=== PATIENT | male | born 1970 | race Caucasian/White ===

== ENCOUNTER 2017-11-10 05:25 | Day surgery (SDC) | payer OTHER ==
[~2017-11-10] VITALS: Ht 175.3 cm; Wt 133.8 kg
[~2017-11-10 05:25] MED LIST: AMLO5TAB4 PO; CIPR-211 PO; IBUP-1969 PO; LISI40TA4 PO
[2017-11-10] MEDS ORDERED: CEFAZOLIN SOD 2 GM in D5W 50 ML IV ONE (07:00)
[2017-11-10] MEDS ORDERED: CEFAZOLIN SOD 1 GM/ ISO 50 ML PREMIX IV ONE (07:00)
[2017-11-10] MEDS ORDERED: SEVOFLURANE 15 MIN GAS INH ONE ×2 (07:10)
[2017-11-10] MEDS ORDERED: EPINEPHrine 1 MG/ML AMP IV ONE (07:10)
[2017-11-10] MEDS ORDERED: NS 1000 ML IV.SOLN IV ONE (07:10)
[2017-11-10] MEDS ORDERED: SUCCINYLCHOLINE CHLORIDE 20 MG/ML(QUELICIN) IVP ONE (07:10)
[2017-11-10] MEDS ORDERED: fentaNYL CITRATE 250 MCG/5 ML AMP IV ONE (07:10)
[2017-11-10] MEDS ORDERED: KETOROLAC TROMETHAMINE 30 MG VIAL IVP ONE (07:10)
[2017-11-10] MEDS ORDERED: PROPOFOL 200MG/ 20ML VIAL (DIPRIVAN) IV ONE (07:10)
[2017-11-10] MEDS ORDERED: ROCURONIUM BROMIDE 10 MG/ML (ZEMURON) IV ONE (07:10)
[2017-11-10] MEDS ORDERED: DEXAMETHASONE SOD PHOSPHATE 4 MG/ML VIAL IVP ONE (07:10)
[2017-11-10] MEDS ORDERED: BUPIVACAINE /PF 0.25% 30 ML VIAL INJ ONE (07:10)
[2017-11-10] MEDS ORDERED: SUGAMMADEX SODIUM 200 MG/2 ML VIAL IV ONE (07:10)
[2017-11-10] MEDS ORDERED: LR 1,000 ML IV.SOLN IV ONE (07:10)
[2017-11-10] MEDS ORDERED: MIDAZOLAM HCL 5 MG/5 ML VIAL IVP ONE (07:10)
[2017-11-10] MEDS ORDERED: ONDANSETRON HCL 4 MG/2 ML VIAL IVP ONE (07:10)
[2017-11-10] MEDS ORDERED: CEFAZOLIN 2 GM IVPB PREMIX 50 ML IV ONE (07:32)
[2017-11-10] MEDS ORDERED: IOHEXOL 0 ML IV ONE (07:39)
[2017-11-10] MEDS ORDERED: LR 1,000 ML IV SCH (08:41)
[2017-11-10] MEDS ORDERED: MEPERIDINE HCL/PF 25 MG/ML DISP.SYRIN IVP PRN (08:45)
[2017-11-10] MEDS ORDERED: HYDROmorphone 1 MG INJ. 1 MG/ML AMPUL IVP PRN ×2 (08:45→09:00)
[2017-11-10] MEDS ORDERED: HYDROmorphone 2 MG/ML VIAL IVP PRN ×2 (08:45)
[2017-11-10] MEDS ORDERED: D5/0.45 NS 1,000 ML IV SCH (08:51)
[2017-11-10] MEDS ORDERED: HYDROcodone/ACETAMIN 5-325 MG TAB (NORCO/ VICODIN) PO PRN ×2 (09:00)
[2017-11-10] MEDS ORDERED: HYDROmorphone 1 MG INJ. 1 MG/ML AMPUL ONE (09:55)
[2017-11-10] MEDS ORDERED: HYDROcodone/ACETAMIN 5-325 MG TAB (NORCO/ VICODIN) ONE (12:23)
[2017-11-10 15:28] VITALS: BP_SYST 118
== END 2017-11-10 15:23 | disposition home or self-care (01) ==
LOC: SDS 05:25
PROVIDERS: ATTEND Colon & Rectal Surgery
DX: K80.10 Calculus of gallbladder with chronic cholecystitis without obstruction (principal); M19.90 Unspecified osteoarthritis, unspecified site; I10 Essential (primary) hypertension; G47.33 Obstructive sleep apnea (adult) (pediatric); Z98.890 Other specified postprocedural states; Z82.49 Family history of ischemic heart disease and other diseases of the circulatory system; Z80.7 Family history of other malignant neoplasms of lymphoid, hematopoietic and related tissues; Z80.1 Family history of malignant neoplasm of trachea, bronchus and lung; Z80.0 Family history of malignant neoplasm of digestive organs; Z68.41 Body mass index [BMI] 40.0-44.9, adult; Z79.899 Other long term (current) drug therapy
CPT/HCPCS: 47562; 88304; C1727; C9399; J0171; J0330; J0690 ×2; J1100; J1170; J1885; J2250; J2405; J2704; J3010; J3490; J7030; J7120; Q9967

== ENCOUNTER 2022-01-21 23:44 | Inpatient (IN) | payer OTHER ==
[~2022-01-21] VITALS: Ht 175.3 cm; Wt 118.4 kg
[~2022-01-21 23:44] MED LIST changes: -CIPR-211 PO; +CIPR500T5 PO; +LISI40TA13 PO; -LISI40TA4 PO
[2022-01-21 23:55] VITALS: BP_SYST 117
[2022-01-22] MEDS ORDERED: PIPERACILLIN/TAZO 3.375 GM in D5W 50 ML IV ONE (00:30)
[2022-01-22] MEDS ORDERED: NACL 0.9% 1,000 ML IV ONE (00:30)
[2022-01-22] MEDS ORDERED: ACETAMINOPHEN 500 MG TABLET PO ONE (00:30)
[2022-01-22] MEDS ORDERED: PIPERACILLIN/TAZOBACTAM 3.375 GM/VIAL (ZOSYN) IV ONE (00:35)
[2022-01-22 00:56] LABS: BASOPHILS % (AUTO) 0.3 % (0.0-2.0); EOSINOPHILS # (AUTO) 0.2 K/uL (0.0-0.4); EOSINOPHILS % (AUTO) 1.6 % (0.0-4.0); HEMOGLOBIN 13.6 g/dL (14.0-18.0); LYMPHOCYTES # (AUTO) 0.7 K/uL (1.0-5.5); LYMPHOCYTES % (AUTO) 6.3 % (20.5-51.5); MEAN CORPUSCULAR HEMOGLOBIN 31 pg (27-31); MEAN CORPUSCULAR HGB CONC 35 % (32-36); MEAN CORPUSCULAR VOLUME 88 fL (79.0-98.0); MONOCYTES # (AUTO) 0.5 K/uL (0.0-1.0); MONOCYTES % (AUTO) 4.9 % (1.7-9.3); NEUTROPHILS # (AUTO) 9.1 K/uL (1.8-7.7); NEUTROPHILS % (AUTO) 86.9 % (40.0-70.0); PLATELET COUNT (AUTO) 168 K/uL (130-430); RED BLOOD CELL COUNT(AUTO) 4.45 MIL/uL (4.2-6.2); RED CELL DISTRIBUTION WIDTH 12.9 % (9.0-15.0); WHITE BLOOD COUNT (AUTO) 10.5 K/uL (4.8-10.8)
[2022-01-22 01:10] LABS: ANION GAP 10 (5-15); CALCIUM 9.6 mg/dL (8.4-11.0); CHLORIDE 102 mmol/L (98-107); CREATININE 1.12 mg/dL (0.55-1.30); GLUCOSE 135 mg/dL (70-99); UREA NITROGEN, BLOOD 17 mg/dL (8-21)
[2022-01-22 01:18] LABS: ALANINE AMINOTRANSFERASE 59 U/L (12-78); ASPARTATE AMINOTRANSFERASE 27 U/L (10-37); TOTAL BILIRUBIN 0.5 mg/dL (0.0-1.0)
[2022-01-22 01:22] LABS: GFR AFRICAN AMERICAN 89 mL/min (>90)
[2022-01-22] MEDS ORDERED: ACETAMINOPHEN 325 MG TABLET PO PRN (03:30)
[2022-01-22 04:00] LABS: BILIRUBIN,URINE NEGATIVE (NEGATIVE); CLARITY/URINE CLEAR (CLEAR); COLOR,URINE YELLOW (YELLOW); GLUCOSE,URINE NEGATIVE (NEGATIVE); KETONES,URINE NEGATIVE (NEGATIVE); LEUKOCYTE ESTERASE ,URINE NEGATIVE (NEGATIVE); NITRITE, URINE NEGATIVE (NEGATIVE); PROTEIN URINE NEGATIVE (NEGATIVE); UROBILINOGEN,URINE 0.2 (0.2-1.0)
[2022-01-22] MEDS ORDERED: VANCOMYCIN HCL 1,000 MG in NS 250 ML IV ONE (04:00)
[2022-01-22 04:06] LABS: BLOOD, URINE TRACE (NEGATIVE)
[2022-01-22] MEDS ORDERED: VANCOMYCIN HCL 1000 MG/VIAL IV ONE (04:08)
[2022-01-22 04:15] LABS: BACTERIA,URINE FEW /HPF (None Seen); MUCUS,URINE None Seen /LPF (None Seen)
[2022-01-22 05:56] VITALS: BP_SYST 135
[2022-01-22 06:00] VITALS: BP_SYST 126
[2022-01-22 11:42] VITALS: BP_SYST 122
[2022-01-22] MEDS: AMPICILLIN SODIUM/SULBACTAM NA 3 GM in NS 100 ML IV SCH ×2 (12:21→19:00)
[2022-01-22] MEDS: VANCOMYCIN HCL 1,000 MG in NS 250 ML IV SCH ×2 (12:24→20:29)
[2022-01-22 16:20] VITALS: BP_SYST 136
[2022-01-22 20:31] VITALS: BP_SYST 137
[2022-01-23] MEDS: AMPICILLIN SODIUM/SULBACTAM NA 3 GM in NS 100 ML IV SCH ×4 (00:49→17:52)
[2022-01-23] MEDS: VANCOMYCIN HCL 1,000 MG in NS 250 ML IV SCH ×3 (05:26→21:09)
[2022-01-23 08:42] VITALS: BP_SYST 138
[2022-01-23 12:00] VITALS: BP_SYST 128
[2022-01-23 16:00] VITALS: BP_SYST 111
[2022-01-23 19:00] VITALS: BP_SYST 108
[2022-01-23 20:00] VITALS: BP_SYST 108
[2022-01-24] VITALS: BP_SYST 112
[2022-01-24] MEDS: AMPICILLIN SODIUM/SULBACTAM NA 3 GM in NS 100 ML IV SCH ×3 (00:02→11:14)
[2022-01-24] MEDS: VANCOMYCIN HCL 1,000 MG in NS 250 ML IV SCH ×2 (03:38→11:15)
[2022-01-24 07:14] LABS: BASOPHILS % (AUTO) 0.6 % (0.0-2.0); EOSINOPHILS # (AUTO) 0.4 K/uL (0.0-0.4); EOSINOPHILS % (AUTO) 7.6 % (0.0-4.0); HEMATOCRIT 38.9 % (36-54); HEMOGLOBIN 13.4 g/dL (14.0-18.0); LYMPHOCYTES # (AUTO) 1.3 K/uL (1.0-5.5); LYMPHOCYTES % (AUTO) 22.8 % (20.5-51.5); MEAN CORPUSCULAR HEMOGLOBIN 30 pg (27-31); MEAN CORPUSCULAR HGB CONC 34 % (32-36); MEAN CORPUSCULAR VOLUME 88 fL (79.0-98.0); MONOCYTES # (AUTO) 0.8 K/uL (0.0-1.0); NEUTROPHILS # (AUTO) 3.1 K/uL (1.8-7.7); PLATELET COUNT (AUTO) 170 K/uL (130-430); RED BLOOD CELL COUNT(AUTO) 4.42 MIL/uL (4.2-6.2); RED CELL DISTRIBUTION WIDTH 12.8 % (9.0-15.0); WHITE BLOOD COUNT (AUTO) 5.7 K/uL (4.8-10.8)
[2022-01-24 07:26] LABS: CALCIUM 8.9 mg/dL (8.4-11.0); CREATININE 0.85 mg/dL (0.55-1.30)
[2022-01-24] MEDS ORDERED: DOXY100C PO (11:26)
[2022-01-24 12:49] VITALS: BP_SYST 110
[2022-01-24 13:35] VITALS: BP_SYST 111
[2022-01-24] MEDS ORDERED: VANCOMYCIN HCL 1,500 MG in NS 250 ML IV SCH (20:00)
== END 2022-01-24 14:30 | disposition home health service (06) | DRG 603 ==
LOC: SED 23:44 → STU 01-22 03:19
PROVIDERS: ADMIT Internal Medicine; ATTEND Internal Medicine
DX: L03.116 Cellulitis of left lower limb (principal); N39.0 Urinary tract infection, site not specified; E83.59 Other disorders of calcium metabolism; N29 Other disorders of kidney and ureter in diseases classified elsewhere; E66.9 Obesity, unspecified; I89.0 Lymphedema, not elsewhere classified; Z20.822 Contact with and (suspected) exposure to COVID-19; Z91.030 Bee allergy status; Z79.899 Other long term (current) drug therapy; Z68.38 Body mass index [BMI] 38.0-38.9, adult
CPT/HCPCS: 36415; 71045; 76770; 80048; 80053; 80202; 81000; 83605; 84484; 85025; 87040; 87086; 93005; 96365; 96367; 99285; G0378; J0295; J2543; J3370; J7030; J7050

== ENCOUNTER 2023-05-26 14:19 | Observation (INO) | payer OTHER ==
[~2023-05-26] VITALS: Ht 175.3 cm; Wt 126.6 kg
[~2023-05-26 14:19] MED LIST changes: -CIPR500T5 PO; +DOXY100C PO; -IBUP-1969 PO
[2023-05-26 14:21] VITALS: BP_SYST 108; PULSE 103; RESP 16; TEMP 98.7; O2SAT 97
[2023-05-26 15:15] LABS: BASOPHILS % (AUTO) 0.5 % (0.0-2.0); EOSINOPHILS # (AUTO) 0.2 K/uL (0.0-0.4); EOSINOPHILS % (AUTO) 1.7 % (0.0-4.0); HEMATOCRIT 43.5 % (36-54); HEMOGLOBIN 15.2 g/dL (14.0-18.0); LYMPHOCYTES # (AUTO) 1.2 K/uL (1.0-5.5); LYMPHOCYTES % (AUTO) 13.2 % (20.5-51.5); MEAN CORPUSCULAR HEMOGLOBIN 31 pg (27-31); MEAN CORPUSCULAR HGB CONC 35 % (32-36); MEAN CORPUSCULAR VOLUME 89 fL (79.0-98.0); MONOCYTES # (AUTO) 0.6 K/uL (0.0-1.0); MONOCYTES % (AUTO) 6.7 % (1.7-9.3); NEUTROPHILS # (AUTO) 7.3 K/uL (1.8-7.7); NEUTROPHILS % (AUTO) 77.9 % (40.0-70.0); PLATELET COUNT (AUTO) 228 K/uL (130-430); RED BLOOD CELL COUNT(AUTO) 4.88 MIL/uL (4.2-6.2); RED CELL DISTRIBUTION WIDTH 12.8 % (9.0-15.0); WHITE BLOOD COUNT (AUTO) 9.4 K/uL (4.8-10.8)
[2023-05-26 15:22] LABS: ANION GAP 10 (5-15); CALCIUM 9.2 mg/dL (8.4-11.0); CARBON DIOXIDE 26 mmol/L (23-29); CHLORIDE 102 mmol/L (98-107); CREATININE 0.99 mg/dL (0.55-1.30); GFR AFRICAN AMERICAN 102 mL/min (>90); GLUCOSE 111 mg/dL (74-106); SODIUM SERUM 138 mmol/L (136-145); UREA NITROGEN, BLOOD 13 mg/dL (8-21)
[2023-05-26 15:23] LABS: GFR NON AFRICAN-AMERICAN 84 mL/min (>90); PROTHROMBIN TIME 10.8 SECS (9.5-12.5)
[2023-05-26 15:30] LABS: CREATINE KINASE, TOTAL 160 U/L (39-308)
[2023-05-26] MEDS ORDERED: IOHEXOL 350 mgI/mL, 150 ML INFUS..BTL IV ONE (15:40)
[2023-05-26] MEDS: ASPIRIN 325 MG TABLET PO ONE (17:01)
[2023-05-26 23:15] VITALS: BP_SYST 119; PULSE 79; RESP 20; TEMP 98.1; O2SAT 96
[2023-05-27] VITALS: RESP 20
[2023-05-27 04:00] VITALS: RESP 20
[2023-05-27 08:00] VITALS: BP_SYST 123; PULSE 82; RESP 18; TEMP 98.7; O2SAT 97
[2023-05-27] MEDS ORDERED: ONDANSETRON HCL 4 MG/2 ML VIAL IVP PRN (10:30)
[2023-05-27] MEDS ORDERED: LORazepam 2 MG/ML VIAL IVP PRN (10:30)
[2023-05-27] MEDS ORDERED: ACETAMINOPHEN 325 MG TABLET PO PRN ×2 (10:30)
[2023-05-27] MEDS ORDERED: NALOXONE HCL 0.4 MG/ML AMP (NARCAN) IVP PRN ×2 (10:30)
[2023-05-27] MEDS ORDERED: HYDROcodone/ACETAMIN 5-325 MG TAB (NORCO/ VICODIN) PO PRN (10:30)
[2023-05-27] MEDS ORDERED: HYDROcodone/ACETAMIN 10-325 MG TAB PO PRN (10:30)
[2023-05-27] MEDS: amLODIPine BESYLATE 5 MG TABLET PO ONE (11:43)
[2023-05-27] MEDS: lisinopriL 20 MG TABLET PO ONE (11:44)
[2023-05-27 13:22] VITALS: BP_SYST 120; PULSE 82; RESP 18; TEMP 98
[2023-05-27 13:28] VITALS: BP_SYST 120; PULSE 82; RESP 18; TEMP 98
[2023-05-27] MEDS ORDERED: NORMAL SALINE 5 ML DISP.SYRIN IVF SCH (14:00)
[2023-05-27] MEDS ORDERED: DOXYCYCLINE HYCLATE 100 MG CAPSULE PO SCH (21:00)
[2023-05-28] MEDS ORDERED: lisinopriL 20 MG TABLET PO SCH (09:00)
[2023-05-28] MEDS ORDERED: amLODIPine BESYLATE 5 MG TABLET PO SCH (09:00)
== END 2023-05-27 12:50 | disposition home or self-care (01) ==
LOC: SED 14:19 → SMU 18:18
PROVIDERS: ADMIT Specialist; ATTEND Specialist
DX: I16.0 Hypertensive urgency (principal); R07.89 Other chest pain; I73.9 Peripheral vascular disease, unspecified; I51.7 Cardiomegaly; G47.30 Sleep apnea, unspecified; I10 Essential (primary) hypertension; Z79.899 Other long term (current) drug therapy
CPT/HCPCS: 80048; 82550; 83880; 85025; 85379; 85610; 85730; 84484 ×2; 36415 ×2; 71045; 71275; 99285; 93306; Q9967; G0378 ×2; 93005

== ENCOUNTER 2023-08-26 19:11 | Emergency (ER) | payer OTHER ==
[~2023-08-26] VITALS: Ht 175.3 cm; Wt 120.7 kg
[2023-08-26 19:57] VITALS: BP_SYST 135; PULSE 91; RESP 20; TEMP 98.4; O2SAT 98
[2023-08-26] MEDS: FAMOTIDINE PF 20 MG/2 ML VIAL IVP ONE (20:29)
[2023-08-26 20:32] LABS: BASOPHILS % (AUTO) 0.5 % (0.0-2.0); EOSINOPHILS # (AUTO) 0.3 K/uL (0.0-0.4); EOSINOPHILS % (AUTO) 3.8 % (0.0-4.0); HEMATOCRIT 42.2 % (36-54); HEMOGLOBIN 14.7 g/dL (14.0-18.0); LYMPHOCYTES % (AUTO) 12.5 % (20.5-51.5); MEAN CORPUSCULAR HEMOGLOBIN 31 pg (27-31); MEAN CORPUSCULAR HGB CONC 35 % (32-36); MEAN CORPUSCULAR VOLUME 88 fL (79.0-98.0); MONOCYTES # (AUTO) 0.5 K/uL (0.0-1.0); NEUTROPHILS # (AUTO) 5.9 K/uL (1.8-7.7); NEUTROPHILS % (AUTO) 76.2 % (40.0-70.0); PLATELET COUNT (AUTO) 215 K/uL (130-430); RED BLOOD CELL COUNT(AUTO) 4.81 MIL/uL (4.2-6.2); RED CELL DISTRIBUTION WIDTH 12.8 % (9.0-15.0); WHITE BLOOD COUNT (AUTO) 7.7 K/uL (4.8-10.8)
[2023-08-26 20:52] LABS: ALANINE AMINOTRANSFERASE 44 U/L (12-78); ALBUMIN 3.8 g/dL (3.4-4.8); ANION GAP 11 (5-15); ASPARTATE AMINOTRANSFERASE 20 U/L (10-37); BILIRUBIN,DIRECT 0.1 mg/dL (0.0-0.3); CARBON DIOXIDE 25 mmol/L (23-29); CHLORIDE 102 mmol/L (98-107); CREATININE 0.95 mg/dL (0.55-1.30); GFR AFRICAN AMERICAN 107 mL/min (>90); GFR NON AFRICAN-AMERICAN 88 mL/min (>90); GLUCOSE 167 mg/dL (74-106); LIPASE 54 U/L (16-77); POTASSIUM 3.5 mmol/L (3.5-5.1); SODIUM SERUM 138 mmol/L (136-145); TOTAL BILIRUBIN 0.6 mg/dL (0.0-1.0); TOTAL PROTEIN, SERUM 8.2 g/dL (6.4-8.3); UREA NITROGEN, BLOOD 11 mg/dL (8-21)
[2023-08-26 21:15] LABS: BILIRUBIN,URINE NEGATIVE (NEGATIVE); BLOOD, URINE 3+ (NEGATIVE); CLARITY/URINE CLEAR (CLEAR); COLOR,URINE YELLOW (YELLOW); GLUCOSE,URINE 1+ (NEGATIVE); KETONES,URINE NEGATIVE (NEGATIVE); LEUKOCYTE ESTERASE ,URINE NEGATIVE (NEGATIVE); NITRITE, URINE NEGATIVE (NEGATIVE); PH,URINE 6.5 (5.0-8.0); PROTEIN URINE 1+ (NEGATIVE); UROBILINOGEN,URINE 0.2 (0.2-1.0)
[2023-08-26 21:24] LABS: BACTERIA,URINE None Seen /HPF (None Seen); MUCUS,URINE 2+ /LPF (None Seen); RBC,URINE 50-80 /HPF (0-3); WBC,URINE 0-3 /HPF (0-3)
[2023-08-26] MEDS ORDERED: HYDR-3927 PO (22:34)
[2023-08-26 22:57] VITALS: BP_SYST 101; PULSE 79; RESP 16; TEMP 97.2; O2SAT 96
== END 2023-08-26 22:57 | disposition home or self-care (01) ==
LOC: SED 19:11
DX: N13.2 Hydronephrosis with renal and ureteral calculous obstruction (principal); R07.89 Other chest pain; R10.9 Unspecified abdominal pain; R06.02 Shortness of breath; I10 Essential (primary) hypertension; Z90.49 Acquired absence of other specified parts of digestive tract; Z91.030 Bee allergy status; Z79.899 Other long term (current) drug therapy; Z79.2 Long term (current) use of antibiotics
CPT/HCPCS: 99285; 74176; 96374; 71045; 80076; 80048; 81001; 83880; 83690; 85025; 84484; 36415; 93005; J3490; 81000; 81015